=== PATIENT | female | born 1960 | race Caucasian/White ===

== ENCOUNTER 2021-09-11 13:09 | Outpatient (CLI) | payer BC | END 2021-09-11 13:10 | disposition home or self-care (01) | LOC: CSHMRI 13:09 | PROVIDERS: ATTEND Specialist | DX: M54.12 Radiculopathy, cervical region (principal); M50.222 Other cervical disc displacement at C5-C6 level; M48.02 Spinal stenosis, cervical region | CPT/HCPCS: 72141 ==

== ENCOUNTER 2022-06-13 15:02 | Outpatient (CLI) | payer BC | END 2022-06-13 15:03 | disposition home or self-care (01) | LOC: CSHMRI 15:02 | PROVIDERS: ATTEND Psychiatry & Neurology Neurology | DX: M54.50 Low back pain, unspecified (principal) | CPT/HCPCS: 70551 ==